=== PATIENT | male | born 1970 | race Caucasian/White ===

== ENCOUNTER 2017-10-08 00:38 | Emergency (ER) | payer OTHER ==
[~2017-10-08] VITALS: Ht 157.5 cm; Wt 60.0 kg
[~2017-10-08 00:38] MED LIST: LORT7.5T3 PO; TAB-TAB PO; Z.0.NO CURRENT MEDS
[2017-10-08 00:48] VITALS: BP 140/92; PULSE 103; RESP 18; TEMP 98.7; O2SAT 96
--- NOTE | 2017-10-08 01:03 | PD ---
HPI Chief Complaint: Alcohol/Drug Intoxication Time Seen by Provider: 00:59 Travel History International Travel<30 days: No Contact w/Intl Traveler<30days: No Traveled to known affect area: No History of Present Illness HPI 47-year-old white male presents emergency department under Marc act by PD. Patient here admits to a history of alcohol abuse. He does state that he would like to get help but does not want detox. He feels depressed regarding his alcohol abuse and has contemplated suicide but has no active plan. He denies any homicidal ideation. No medical complaints. Symptoms are mild. No alleviating factors. Exacerbated by alcohol intake. PFSH Past Medical History Hx Anticoagulant Therapy: No Anxiety: No Depression: Yes Cancer: No Cardiovascular Problems: No Chemotherapy: No Cerebrovascular Accident: No Diabetes: No Endocrine: No GERD: Yes Genitourinary: No Immune Disorder: No Musculoskeletal: No Neurologic: No Psychiatric: No Reproductive: No Respiratory: No Radiation Therapy: No Sickle Cell Disease: No Tetanus Vaccination: Unknown Past Surgical History Narrative Surgical Right lower leg fracture with ORIF Other Surgery: Yes (NOSE REPAIR) Social History Alcohol Use: Yes (2-3BEERS OCC) Tobacco Use: Yes (PPD) Substance Use: Yes (Marijuana) Allergies-Medications (Allergen,Severity, Reaction): Coded Allergies: No Known Allergies (Verified , 09/27/10) Reported Meds & Prescriptions Reported Meds & Active Scripts Active Reported Lortab 7.5/500 (Acetaminophen/Hydrocodone Bitart) Tab 1-2 Tab PO Q6HPRN FOR PAIN Multivitamin (Multivitamins) 1 Tab Tab 1 Tab PO DAILY No Current Meds (Miscellaneous Medication) Misc Review of Systems General / Constitutional: No: Fever Eyes: No: Visual changes HENT: No: Headaches Cardiovascular: No: Chest Pain or Discomfort Respiratory: No: Shortness of Breath Gastrointestinal: No: Abdominal Pain Genitourinary: No: Dysuria Musculoskeletal: Positive: Arthralgias, No: Pain Skin: No Rash Neurologic: No: Weakness Psychiatric: Positive: Depression, Suicidal Ideations, Mood Disorder, Substance Abuse, No: Anxiety, Disorder of Thought, Homicidal Ideation Endocrine: No: Polydipsia Hematologic/Lymphatic: No: Easy Bruising Physical Exam Narrative GENERAL: Well-nourished, well-developed patient. Smells of EtOH and appears intoxicated SKIN: Warm and dry. HEAD: Normocephalic and atraumatic. EYES: No scleral icterus. No injection or drainage. Right upper eyelid stye ENT: No nasal drainage noted. Mucous membranes pink. Airway patent. NECK: Supple, trachea midline. Moves head freely without obvious discomfort. CARDIOVASCULAR: Regular rate and rhythm without murmurs, gallops, or rubs. RESPIRATORY: Breath sounds equal bilaterally. No accessory muscle use. GASTROINTESTINAL: Abdomen soft, non-tender, nondistended. EXTREMITIES: No cyanosis or edema. BACK: Nontender without obvious deformity. No CVA tenderness. NEURO: Patient is alert and oriented. no sensorimotor deficits. Nonfocal. Slurred speech. PSYCH: No delusions. No auditory or visual hallucinations. Data Data Last Documented VS Vital Signs Date Time Temp Pulse Resp B/P (MAP) Pulse Ox O2 Delivery O2 Flow Rate FiO2 10/08/17 00:48 98.7 103 18 140/92 (108) 96 Orders Orders Complete Blood Count With Diff (10/08/17 00:46) Comprehensive Metabolic Panel (10/08/17 00:46) Thyroid Stimulating Hormone (10/08/17 00:46) Psych Screen (10/08/17 00:46) Drug Screen, Random Urine (10/08/17 00:46) Alcohol (Ethanol) (10/08/17 00:59) Labs Laboratory Tests Test 10/08/17 00:55 [facility] Medical Decision Making Medical Screen Exam Complete: Yes Emergency Medical Condition: Yes Medical Record Reviewed: Yes Differential Diagnosis MDM: High Differential diagnoses: Schizophrenia, schizoaffective disorder, bipolar, anxiety, depression, adjustment reaction, mood disorder NOS, ODD, depressive disorder NOS, substance-induced mood disorder, infection,electrolyte abnormality , malingering. Narrative Course Mental health screening discussed with the patient. Psychiatric screen ordered. The patient has been medically cleared. This is medical clearance for psychiatric admission, alcohol induced mood disorder Diagnosis Primary Impression: Medical clearance for psychiatric admission Additional Impression: Alcohol induced mood disorder Condition: Stable Marcelino Mcqueen October 08, 2017 01:03
[2017-10-08 01:11] LABS: AUTOMATED NEUTROPHIL # 2.9 TH/MM3 (1.8-7.7); BASOPHIL # 0.1 TH/MM3 (0-0.2); BASOPHIL % 0.8 % (0.0-2.0); EOSINOPHIL # 0.3 TH/MM3 (0-0.4); EOSINOPHIL % 4.4 % (0.0-4.0); HEMATOCRIT 46.9 % (39.0-51.0); HEMOGLOBIN 16.6 GM/DL (13.0-17.0); LYMPH % 41.6 % (9.0-44.0); LYMPHOCYTE # 2.8 TH/MM3 (1.0-4.8); MEAN CORPUSCULAR HEMOGLOBIN 34.8 PG (27.0-34.0); MEAN CORPUSCULAR HGB CONC 35.5 % (32.0-36.0); MEAN PLATELET VOLUME 8.2 FL (7.0-11.0); MONO % 10.3 % (0.0-8.0); MONOCYTE # 0.7 TH/MM3 (0-0.9); NEUT % 42.9 % (16.0-70.0); PLATELET COUNT 203 TH/MM3 (150-450); RED BLOOD COUNT 4.78 MIL/MM3 (4.50-5.90); RED CELL DISTRIBUTION WIDTH 13.3 % (11.6-17.2); WHITE BLOOD COUNT 6.7 TH/MM3 (4.0-11.0)
[2017-10-08 01:17] LABS: ALBUMIN 4.3 GM/DL (3.4-5.0); ALT (GPT) 39 U/L (12-78); AST (GOT) 27 U/L (15-37); BLOOD UREA NITROGEN 12 MG/DL (7-18); CALCIUM 8.8 MG/DL (8.5-10.1); CHLORIDE 100 MEQ/L (98-107); CREATININE 0.86 MG/DL (0.60-1.30); GLOMERULAR FILTRATION RATE 95 ML/MIN (>89); GLUCOSE,RANDOM 105 MG/DL (74-106); SODIUM (NA) 137 MEQ/L (136-145)
[2017-10-08 01:27] LABS: ALKALINE PHOSPHATASE 72 U/L (45-117); TOTAL BILIRUBIN ADULT 0.2 MG/DL (0.2-1.0); TOTAL PROTEIN 7.7 GM/DL (6.4-8.2)
[2017-10-08 05:25] VITALS: BP 123/74; PULSE 103; RESP 18; O2SAT 96
--- NOTE | 2017-10-08 08:52 | PD ---
Physical Exam Date Seen by Provider: October 08, 2017 Time Seen by Provider: 08:51 Narrative 47-year-old male previously medically clear for psychiatric evaluation has been seen by the psychiatric staff and deemed to be psychiatrically stable for discharge at this time. Patient remains medically stable for discharge. Follow -up will be based on psychiatric note. Data Data Last Documented VS Vital Signs Date Time Temp Pulse Resp B/P (MAP) Pulse Ox O2 Delivery O2 Flow Rate FiO2 10/08/17 05:25 103 18 123/74 (90) 96 Room Air 10/08/17 00:48 98.7 Orders Orders Complete Blood Count With Diff (10/08/17 00:46) Comprehensive Metabolic Panel (10/08/17 00:46) Thyroid Stimulating Hormone (10/08/17 00:46) Psych Screen (10/08/17 00:46) Drug Screen, Random Urine (10/08/17 00:46) Alcohol (Ethanol) (10/08/17 00:59) Diet Regular Basic (10/08/17 Breakfast) Labs Laboratory Tests Test 10/08/17 00:55 10/08/17 01:20 White Blood Count 6.7 TH/MM3 Red Blood Count 4.78 MIL/MM3 Hemoglobin 16.6 GM/DL Hematocrit 46.9 % Mean Corpuscular Volume 98.0 FL Mean Corpuscular Hemoglobin 34.8 PG Mean Corpuscular Hemoglobin Concent 35.5 % Red Cell Distribution Width 13.3 % Platelet Count 203 TH/MM3 Mean Platelet Volume 8.2 FL Neutrophils (%) (Auto) 42.9 % Lymphocytes (%) (Auto) 41.6 % Monocytes (%) (Auto) 10.3 % Eosinophils (%) (Auto) 4.4 % Basophils (%) (Auto) 0.8 % Neutrophils # (Auto) 2.9 TH/MM3 Lymphocytes # (Auto) 2.8 TH/MM3 Monocytes # (Auto) 0.7 TH/MM3 Eosinophils # (Auto) 0.3 TH/MM3 Basophils # (Auto) 0.1 TH/MM3 CBC Comment DIFF FINAL Differential Comment Blood Urea Nitrogen 12 MG/DL Creatinine 0.86 MG/DL Random Glucose 105 MG/DL Total Protein 7.7 GM/DL Albumin 4.3 GM/DL Calcium Level 8.8 MG/DL Alkaline Phosphatase 72 U/L Aspartate Amino Transf (AST/SGOT) 27 U/L Alanine Aminotransferase (ALT/SGPT) 39 U/L Total Bilirubin 0.2 MG/DL Sodium Level 137 MEQ/L Potassium Level 3.7 MEQ/L Chloride Level 100 MEQ/L Carbon Dioxide Level 26.0 MEQ/L Anion Gap 11 MEQ/L Estimat Glomerular Filtration Rate 95 ML/MIN Thyroid Stimulating Hormone 3rd Gen 2.880 uIU/ML Ethyl Alcohol Level 291 MG/DL Urine Opiates Screen NEG Urine Barbiturates Screen NEG Urine Amphetamines Screen NEG Urine Benzodiazepines Screen NEG Urine Cocaine Screen NEG Urine Cannabinoids Screen NEG MDM Medical Record Reviewed: Yes Supervised Visit with AMIE: Yes Narrative Course 47-year-old male previously medically clear for psychiatric evaluation has been seen by the psychiatric staff and deemed to be psychiatrically stable for discharge at this time. Patient remains medically stable for discharge. Follow -up will be based on psychiatric note. Diagnosis Primary Impression: Medical clearance for psychiatric admission Additional Impression: Alcohol induced mood disorder Referrals: [facility] Patient Instructions: General Instructions Disposition: DISCHARGE HOME Condition: Stable [place] October 08, 2017 08:52
--- NOTE | 2017-10-08 14:17 | PD.PSY.CON ---
Provisional Diagnosis Admission Date Eddy I. Alcohol-induced mood disorder, alcohol use disorder Eddy II. Deferred Eddy III. No significant medical his History of Present Illness Service Psychiatry Consult Requested By ER Reason for Consult Suicidal ideation Primary Care Physician No Primary Care Physician HPI The patient is 47-year-old man, domiciled in [place] with his parents, single, employed as a client care specialist, with psychiatric history of alcohol use disorder, no previous psychiatric hospitalizations, no previous suicidal attempts, no significant medical history, who presents emergency department under Marc act by PD. Patient here admits to a history of alcohol abuse. He does state that he would like to get help but does not want detox. The patient reports that last night when he made a suicidal statement he was completely drunk and he does not even remember what he said. At the moment of the evaluation the patient is calm, cooperative, laughing and expressing to be hungry. Patient reports that he loves his life, has many reasons to live for he does not consider committed suicide as a way to solve his problems. He denies suicidal enemas ideation, he denies visual and auditory hallucinations. The patient is logical, coherent and relevant and coherent. Oriented 3. No withdrawal symptoms present. He denies the use of illegal drugs, reports almost daily use of alcohol Review of Systems Constitutional: DENIES: Diaphoretic episodes, Fatigue, Fever, Weight gain, Weight loss, Chills, Dizziness, Change in appetite, Night Sweats Endocrine: DENIES: Heat/cold intolerance, Polydipsia, Polyuria, Polyphagia Eyes: DENIES: Blurred vision, Diplopia, Eye inflammation, Eye pain, Vision loss , Photosensitivity, Double Vision Ears, nose, mouth, throat: DENIES: Tinnitus, Hearing loss, Vertigo, Nasal discharge, Oral lesions, Throat pain, Hoarseness, Ear Pain, Running Nose, Epistaxis, Sinus Pain, Toothache, Odynophagia Respiratory: DENIES: Apneas, Cough, Snoring, Wheezing, Hemoptysis, Sputum production, Shortness of breath Cardiovascular: DENIES: Chest pain, Palpitations, Syncope, Dyspnea on Exertion , PND, Lower Extremity Edema, Orthopnea, Claudication Gastrointestinal: DENIES: Abdominal pain, Black stools, Bloody stools, Constipation, Diarrhea, Nausea, Vomiting, Difficulty Swallowing, Anorexia Genitourinary: DENIES: Sexual dysfunction, Urinary frequency, Urinary incontinence, Urgency, Hematuria, Dysuria, Nocturia, Penile Discharge, Testicular Pain, Testicular Swelling Musculoskeletal: DENIES: Joint pain, Muscle aches, Stiffness, Joint Swelling, Back pain, Neck pain Integumentary: DENIES: Abnormal pigmentation, Nail changes, Pruritus, Rash Hematologic/lymphatic: DENIES: Bruising, Lymphadenopathy Immunologic/allergic: DENIES: Eczema, Urticaria Neurologic: DENIES: Abnormal gait, Headache, Localized weakness, Paresthesias, Seizures, Speech Problems, Tremor, Poor Balance Psychiatric: DENIES: Anxiety, Confusion, Mood changes, Depression, Hallucinations, Agitation, Suicidal Ideation, Homicidal Ideation, Delusions Past Family Social History Coded Allergies: No Known Allergies (Verified , 09/27/10) Reported Medications Hydrocodone-Acetaminophen (Lortab 7.5/500) Tab, 1 - 2 TAB PO Q6HPRN, #30 FOR PAIN 09/29/10 Multiple Vitamin (Multivitamin) 1 Tab Tab, 1 TAB PO DAILY, #30 09/29/10 Miscellaneous (No Current Meds) Misc 09/27/10 Family Psych History No family psychiatric history Social History Patient was born and raised in [place], he lives in [place] with his parents, single, employed as a client care specialist, his highest level of education is high school Patient's Strengths (min. 2) Verbal communicate Physical Exam No withdrawal symptoms. Vital Signs Vital Signs Date Time Temp Pulse Resp B/P (MAP) Pulse Ox O2 Delivery O2 Flow Rate FiO2 10/08/17 09:11 10/08/17 05:25 103 18 96 Room Air 10/08/17 00:48 98.7 Lab Results Test 10/08/17 00:55 10/08/17 01:20 White Blood Count 6.7 TH/MM3 Red Blood Count 4.78 MIL/MM3 Hemoglobin 16.6 GM/DL Hematocrit 46.9 % Mean Corpuscular Volume 98.0 FL Mean Corpuscular Hemoglobin 34.8 PG Mean Corpuscular Hemoglobin Concent 35.5 % Red Cell Distribution Width 13.3 % Platelet Count 203 TH/MM3 Mean Platelet Volume 8.2 FL Neutrophils (%) (Auto) 42.9 % Lymphocytes (%) (Auto) 41.6 % Monocytes (%) (Auto) 10.3 % Eosinophils (%) (Auto) 4.4 % Basophils (%) (Auto) 0.8 % Neutrophils # (Auto) 2.9 TH/MM3 Lymphocytes # (Auto) 2.8 TH/MM3 Monocytes # (Auto) 0.7 TH/MM3 Eosinophils # (Auto) 0.3 TH/MM3 Basophils # (Auto) 0.1 TH/MM3 CBC Comment DIFF FINAL Differential Comment Blood Urea Nitrogen 12 MG/DL Creatinine 0.86 MG/DL Random Glucose 105 MG/DL Total Protein 7.7 GM/DL Albumin 4.3 GM/DL Calcium Level 8.8 MG/DL Alkaline Phosphatase 72 U/L Aspartate Amino Transf (AST/SGOT) 27 U/L Alanine Aminotransferase (ALT/SGPT) 39 U/L Total Bilirubin 0.2 MG/DL Sodium Level 137 MEQ/L Potassium Level 3.7 MEQ/L Chloride Level 100 MEQ/L Carbon Dioxide Level 26.0 MEQ/L Anion Gap 11 MEQ/L Estimat Glomerular Filtration Rate 95 ML/MIN Thyroid Stimulating Hormone 3rd Gen 2.880 uIU/ML Ethyl Alcohol Level 291 MG/DL Urine Opiates Screen NEG Urine Barbiturates Screen NEG Urine Amphetamines Screen NEG Urine Benzodiazepines Screen NEG Urine Cocaine Screen NEG Urine Cannabinoids Screen NEG Mental Status Examination Appearance: Appropriate Consciousness: Alert Orientation: x4 Motor Activity: Normal gait Speech: Unremarkable Language: Adequate Fund of Knowledge: Adequate Attention and Concentration: Adequate Memory: Unremarkable Mood: Appropriate Affect: Appropriate Thought Process & Associations: Intact Thought Content: Appropriate Hallucination Type: None Delusion Type: None Suicidal Ideation: No Suicidal Plan: No Suicidal Intention: No Homicidal Ideation: No Homicidal Plan: No Homicidal Intention: No Insight: Adequate Judgment: Adequate Assessment & Plan Problem List: (1) Alcohol abuse with alcohol-induced mood disorder ICD Codes: F10.14 - Alcohol abuse with alcohol-induced mood disorder Assessment & Plan: On psychiatric evaluation today the patient presents with no symptoms of depression, anxiety, renee or psychosis. The patient denies suicidal and homicidal ideation, the patient denies visual and auditory hallucinations. She is clinically sober. No withdrawal symptoms present. Recent suicidal statement was most probably the result of acute alcohol intoxication and maladaptive coping skills. The patient does not meet criteria for involuntary psychiatric admission. I have offered the patient to go to [facility] for detox, but he declines. Brief supportive psychotherapy provided. Marc act will be lifted Assessment & Plan Estimated LOS: Peterson Palmer MD October 08, 2017 14:17
== END 2017-10-08 09:32 | disposition home or self-care (01) ==
LOC: NEPJ 00:38
DX: F10.14 Alcohol abuse with alcohol-induced mood disorder (principal); F12.90 Cannabis use, unspecified, uncomplicated; F17.200 Nicotine dependence, unspecified, uncomplicated; Y90.8 Blood alcohol level of 240 mg/100 ml or more
CPT/HCPCS: 80053; 80307; 84443; 85025; 99284